=== PATIENT | female | born 2000 | race African-American/Black ===

== ENCOUNTER 2023-08-21 11:46 | Emergency (ER) | payer MEDICAID ==
[~2023-08-21] VITALS: Ht 167.6 cm; Wt 63.0 kg
[2023-08-21 12:10] VITALS: BP 106/50; PULSE 76; RESP 18; TEMP 99.7; O2SAT 100
[2023-08-21] MEDS ORDERED: DEXAMETHASONE 10 MG/ML VIAL IV ONE (15:00)
[2023-08-21] MEDS ORDERED: SODIUM CHLORIDE 0.9% 1,000 ML IV ONE (15:00)
[2023-08-21] MEDS ORDERED: KETOROLAC 30MG/ML VIAL IM ONE (15:00)
[2023-08-21 15:50] LABS: BASOPHILS % 0.4 % (0.0-2.0); EOSINOPHILS % 0.4 % (0.0-5.0); HEMATOCRIT. 39.1 % (36.0-48.0); HEMOGLOBIN. 13.1 g/dL (12.0-16.0); LYMPHOCYTES % 11.7 % (20.0-50.0); MEAN CORPUSCULAR HEMOGLOBIN 31.3 pg (28.0-32.0); MEAN CORPUSCULAR HGB CONC 33.6 g/dL (31.0-37.0); MEAN CORPUSCULAR VOLUME 93.1 fL (81.0-99.0); MEAN PLATELET VOLUME 8.2 fl (7.4-10.4); NEUTROPHILS % 81.5 % (40.0-76.0); PLATELET 206 x1000/uL (130-400); RED CELL DISTRIBUTION WIDTH 13.7 % (11.6-14.6); WHITE BLOOD COUNT 9.9 x1000/uL (4.5-11.0)
[2023-08-21 15:58] LABS: ALANINE AMINOTRANSFERASE 9 IU/L (10-49); ALBUMIN 4.4 g/dL (3.2-4.8); ASPARTATE AMINOTRANSFERASE 17 IU/L (<34); BILIRUBIN TOTAL 0.6 mg/dL (0.1-1.0); CALCIUM 9.2 mg/dL (8.7-10.4); CARBON DIOXIDE 25 mEq/L (21-32); CHLORIDE 105 mEq/L (98-107); CREATININE 0.7 mg/dL (0.6-1.0); GLUCOSE 84 mg/dL (70-105); POTASSIUM 3.9 mEq/L (3.5-5.1); PROTEIN TOTAL 8.4 g/dL (6.0-8.3); SODIUM 136 mEq/L (136-145); UREA NITROGEN BLOOD 6 mg/dL (9-23)
[2023-08-21 16:01] LABS: MONOTEST NEGATIVE (NEGATIVE)
[2023-08-21] MEDS ORDERED: CLINDAMYCIN 300 MG in DEXTROSE 5% WATER 50 ML IV ONE (17:15)
[2023-08-21] MEDS ORDERED: CLIN-194 MT (17:29)
== END 2023-08-21 19:37 | disposition left against medical advice (07) ==
LOC: ER 12:47
DX: J02.9 Acute pharyngitis, unspecified (principal)
CPT/HCPCS: 80053; 87430; 83605; 85025; 86308; 87040; 87070; 36415; 84145; 70491; 96361; 96365; 96372; 96375; 99285; J3490; J1100; J1885; J7060; J7030; Z7610 ×3